=== PATIENT | female | born 1990 | race Two or more races ===

== ENCOUNTER 2025-10-08 16:25 | Emergency (ER) | payer OTHER ==
[~2025-10-08] VITALS: Ht 167.6 cm; Wt 114.3 kg
--- NOTE | 2025-10-08 16:53 | ED.PDOC ---
GI ASSESSMENT HPI Comments HPI: Mike 35 y.o female presents to the ED for a cheif complaint of epigastric and RUQ pain x 2 days ago. Patient reports pain is constant and worsens with food intake. Patient also reports 2 episodes of diarrhea that were yellow in coloration yesterday but states since has had no BM today. She denies any vomiting, fever, chills, rectal bleeding. She was treated for H.pylori 6 months ago. Past medical history: H.pylori Past surgical history: denies Allergies: NKDA MIKE GARY: EPIG/RUQ PAIN X1DAY. N/D YELLOW. WORSE WITH FOOD. HPI: Poor Historian. Past Medical History: Past Surgical History: REVIEW OF SYSTEMS: CONSTITUTIONAL: Denies acute: fever, diaphoresis, chills, generalized weakness. HEAD: Denies acute: headache, photophobia Eyes: Denies acute: Double vision, vision loss, eye pain, eye discharge. EARS: Denies acute: tinnitus, hearing loss, ear discharge, ear pain, THROAT: Denies acute: sore throat, swelling, difficulty swallowing , pain with swallowing, change in voice. NECK: Denies acute: neck pain, neck swelling, stiff neck. HEART: Denies acute : chest pain, palpitations, LUNGS: Denies acute: SOB, wheezing, cough, hemoptysis ABDOMEN: Denies acute: melena , hematemesis, hematochezia SKIN: Denies acute: rash, redness, lesions, itchiness. EXTREMITIES: Denies acute: calf pain, numbness, tingling, weakness, denies pain in extremity. Denies acute: Low back pain. Neuro: Denies acute: focal neurological deficit, motor or sensory focal neurological deficit, tremors, seizure like activity, confusion, dizziness, change in mental status, loss of bowel or bladder function, cauda equina like symptoms. : Denies acute: dysuria, hematuria, flank pain, increase in urinary frequency. PSYCH: Denies acute: hallucination, suicidal ideation, homicidal ideation. FEMALE: Denies acute: abnormal vaginal bleeding, foul odor, unusual discharge. PHYSICAL EXAM: General: ----mild to moderate----acute distress, awake and alert. Head: normocephalic, atraumatic. No raccoon's eyes, no rendon sign. Neck: supple, trachea is midline, no swelling. Throat: Normal phonation. Eyes:, no erythema, no purulent discharge, no proptosis, no icterus. Heart: regular rate, regular rhythm, no significant murmur appreciated. Lungs: no apparent respiratory distress, Able to speak in full sentences. No wheezing, no rhonchi, no crackles. No stridors Clear to auscultation bilaterally. Abdomen: Epigastric and right upper quadrant tender to palpation, non distended, soft, no guarding, no rebound, + bowel sounds. Obese Neuro: Awake, Alert, oriented to name, self, situation, follows commands GCS=15. Speech is normal. Skin: no petechia, no purpura, no cyanosis, non-pale, not jaundice. Lower extremities: --no - Pitting edema no deformity, no focal swelling, no calf TTP. Makes eye contact. moves all four extremities. Face: no apparent facial droop. Ambulating in the ED independently. ED COURSE: DISCLAIMER: This medical document was created using an electronic medical record system with voice recognition software and computerized dictation system. Although this document has been carefully reviewed, there might still be some phonetic and typographical errors. Occasional wrong-word or "sound-alike" substitutions may have occurred due to the inherent limitations of voice recognition software. These areas are purely typographical due to imperfections of the software programs and do not reflect any compromise in the patient's medical care. Please read the chart carefully and recognize, using context, where these substitutions have occurred. Chief Complaint: Abdominal Pain Time Seen by MD: 16:47 Reviewed Notes: Medications, Allergies Allergies: Coded Allergies: NO KNOWN ALLERGIES (Unverified , 10/08/25) Information Source: Patient Mode of Arrival: Ambulatory Timing: Days Duration: Since onset Quality: Sharp Was a procedure done? Was a procedure done?: No GI differential Dx Differential Diagnosis: Cholangitis, Cholecystitis, Gastritis/PUD, Gastroenteritis X-Ray, Labs, Meds, VS Vital Signs Date Time Temp Pulse Resp B/P (MAP) Pulse Ox O2 Delivery O2 Flow Rate FiO2 10/08/25 19:30 97.6 78 18 143/75 (97) 99 97.6 10/08/25 16:29 99.7 77 13 141/79 98 99.7 Lab Test 10/08/25 17:05 10/08/25 16:12 Range/Units Urine Color Light-yellow Yellow Urine Clarity Clear Clear Urine pH 7.0 5.0-9.0 Urine Specific [place] 1.011 1.001-1.035 Urine Protein Negative Negative Urine Ketones Negative Negative Urine Blood 3+ H Negative /uL Urine Nitrite Negative Negative Urine Bilirubin Negative Negative Urine Urobilinogen Normal Negative mg/dL Urine Leukocyte Esterase 1+ Negative /uL Urine RBC 13 0 - 4 /hpf Urine Microscopic WBC 22 H 0-5 /HPF Urine Squamous Epithelial Cells Few <5 /hpf Urine Bacteria Few H None Seen /hpf Urine Glucose Normal Normal mg/dL White Blood Count 8.7 4.4-10.8 10^3/uL Red Blood Count 4.85 4.0-5.20 10^6/uL Hemoglobin 13.9 12.2-16.2 g/dL Hematocrit 41.0 36.0-46.0 % Mean Corpuscular Volume 84.5 80.0-100.0 fL Mean Corpuscular Hemoglobin 28.6 28.0-32.0 pg Mean Corpuscular Hemoglobin Concent 33.8 32.0-36.0 g/dL Red Cell Distribution Width 14.6 H 11.8-14.3 % Platelet Count 326 140-450 10^3/uL Mean Platelet Volume 7.0 6.9-10.8 fL Neutrophils (%) (Auto) 72.2 37.0-80.0 % Lymphocytes (%) (Auto) 19.5 10.0-50.0 % Monocytes (%) (Auto) 5.2 0.0-12.0 % Eosinophils (%) (Auto) 2.6 0.0-7.0 % Basophils (%) (Auto) 0.5 0.0-2.0 % Neutrophils # (Auto) 6.3 1.6-8.6 10 ^3/uL Lymphocytes # (Auto) 1.7 0.4-5.4 10 ^3/uL Monocytes # (Auto) 0.5 0-1.3 10 ^3/uL Eosinophils # (Auto) 0.2 0-0.8 10 ^3/uL Basophils # (Auto) 0 0-0.2 10 ^3/uL Nucleated Red Blood Cells 0.1 % Sodium Level 142 136-145 mmol/L Potassium Level 3.7 3.5-5.1 mmol/L Chloride Level 105 98-107 mmol/L Carbon Dioxide Level 26 20-31 mmol/L Anion Gap 11 5-15 Blood Urea Nitrogen 7 L 9-23 mg/dL Creatinine 0.61 0.550-1.02 mg/dL Glomerular Filtration Rate Calc 119 >90 mL/min BUN/Creatinine Ratio 11.5 10.0-20.0 Serum Glucose 89 74-106 mg/dL Lactic Acid Level 1.1 0.4-2.0 mmol/L Calcium Level 9.3 8.7-10.4 mg/dL Total Bilirubin 0.4 0.2-1.0 mg/dL Aspartate Amino Transferase (AST) 14 13-40 U/L Alanine Aminotransferase (ALT) 16 7-40 U/L Alkaline Phosphatase 80 46-116 U/L Total Protein 7.7 5.7-8.2 g/dL Albumin 4.6 3.2-4.8 g/dL Lipase 30 12-53 U/L Current Medications Medications (Trade) Dose Ordered Sig/Derek Route Start Time Stop Time Status Last Admin Sucralfate (Carafate Tab) 1 gm ONCE ONCE PO 10/08/25 18:45 10/08/25 18:46 DC 10/08/25 19:46 Pantoprazole Sodium (Protonix Tablet) 40 mg ONCE ONCE PO 10/08/25 18:45 10/08/25 18:46 DC 10/08/25 19:46 Lidocaine HCl (Xylocaine 2% Viscous) 10 ml ONCE ONCE PO 10/08/25 18:45 10/08/25 18:46 ID 10/08/25 19:46 [place] [address] Ph: [phone] DIAGNOSTIC IMAGING Diagnostic Imaging Report : [id number] Signed PATIENT: GARY MCKEON ACCT: [id number] UNIT: [id number] : 1990 LOC: ER ROOM / BED: / AGE / SEX: 35 / F ADM STATUS: REG ER SERVICE [id number] ORDERING PHYSICIAN: KIRSTIN MARTINEZ DO PROCEDURE(s): ABDL - ABDOMEN LIMITED REASON: RUQ N/V ORDER NUMBER(s): [id number], ACCESSION NUMBER(s): [id number] INDICATION: RUQ N/V TECHNIQUE: Multiple real-time sonographic images were obtained of the right upper quadrant. COMPARISON: None FINDINGS: The liver is enlarged measuring 19.8 cm. The liver is increased in echogenicity. without focal mass lesions. There is no intrahepatic or extrahepatic ductal dilatation. The common duct measures 2.9 mm. The gallbladder is without evidence of stone or sludge. The gallbladder wall measures 1.4 mm and is within normal limits. The right kidney measures 11.5 cm. The right kidney is normal in contour, size, and shape. The echogenicity is normal. There is no hydronephrosis. The pancreas is not well visualized due to overlying bowel gas. IMPRESSION: 1. No sonographic evidence of gallstones or acute cholecystitis. 2. Hepatomegaly and hepatic steatosis. ATED BY: ALTHEA PATTON MD DICTATED DATE/TIME: 10/08/251730 SIGNED BY: ALTHEA PATTON MD SIGNED DATE/TIME: 10/08/251730 CC: Time of 1ST Reevaluation: 16:50 Reevaluation 1ST: Unchanged Patient Education/Counseling: Diagnosis, Treatment Family Education/Counseling: No Family Present Departure 1 Departure Time of Disposition: 18:31 Impression: Primary Impression: Right upper quadrant pain Additional Impression: UTI (urinary tract infection) Disposition: 01 HOME / SELF CARE / HOMELESS Condition: Stable Additional Instructions: Additional instructions: Please read all instructions provided in this packet carefully. You MUST follow-up with your primary care/family doctor in 1 to 2 days. If you are unable to see your primary care/family doctor, please return to our emergency room for re-assessment and re-evaluation in 1 to 2 days. Return to the emergency room here in our facility or to the nearest ER [facility] if your symptoms change or worsen. CONSULTATIONS: you MUST Follow-up for consultation as soon as possible with: --gastroenterology in 1-2 days. Please call for appointment. You MUST call the consultants office yourself to make an appointment. You may need to arrange that through your insurance and/or your primary/family doctor. If you are unable to see the remediation bioanalytics consultant in 1 to 2 days, you must return to our emergency room (or any other ER of your choice) for re-assessment and re- evaluation. Adequate fluid hydration. Although you have been discharged from the Emergency Department, this does not mean that you have a "clean bill of health". No definitive diagnosis for your symptoms has been made today. It is possible that you are in the process of developing a serious illness. This is why you must return to the ED without fail if any new or worsening symptoms develop. Avoid fatty greasy spicy food. Avoid caffeinated products. Avoid NSAIDs. Below is a copy of your radiological report for follow up: [address] [address] Ph: [phone] DIAGNOSTIC IMAGING Diagnostic Imaging Report : [id number] Signed PATIENT: GARY MCKEON ACCT: [id number] UNIT: [id number] : 1990 LOC: ER ROOM / BED: / AGE / SEX: 35 / F ADM STATUS: REG ER SERVICE [id number] ORDERING PHYSICIAN: KIRSTIN MARTINEZ DO PROCEDURE(s): ABDL - ABDOMEN LIMITED REASON: RUQ N/V ORDER NUMBER(s): [id number], ACCESSION NUMBER(s): [id number] INDICATION: RUQ N/V TECHNIQUE: Multiple real-time sonographic images were obtained of the right upper quadrant. COMPARISON: None FINDINGS: The liver is enlarged measuring 19.8 cm. The liver is increased in echogenicity. without focal mass lesions. There is no intrahepatic or extrahepatic ductal dilatation. The common duct measures 2.9 mm. The gallbladder is without evidence of stone or sludge. The gallbladder wall measures 1.4 mm and is within normal limits. The right kidney measures 11.5 cm. The right kidney is normal in contour, size, and shape. The echogenicity is normal. There is no hydronephrosis. The pancreas is not well visualized due to overlying bowel gas. IMPRESSION: 1. No sonographic evidence of gallstones or acute cholecystitis. 2. Hepatomegaly and hepatic steatosis. ATED BY: ALTHEA PATTON MD DICTATED DATE/TIME: 10/08/251730 SIGNED BY: ALTHEA PATTON MD SIGNED DATE/TIME: 12/20/25 1731 CC: Discharged With: Self Critical Care Note Critical Care Time?: No I personally scribed for KIRSTIN MARTINEZ DO ([email or web address]) on 10/08/25 at 16:53. Electronically submitted by Jackelyn Navarrete ([facility]). I personally scribed for KIRSTIN MARTINEZ DO ([email or web address]) on 10/08/25 at 22:25. Electronically submitted by Jackelyn Navarrete ([facility]). KIRSTIN MARTINEZ DO Oct 08, 2025 16:53
[2025-10-08 17:18] LABS: Hematocrit 41.0 % (36.0-46.0); Hemoglobin 13.9 g/dL (12.2-16.2); Mean Corpuscular Hemoglobin 28.6 pg (28.0-32.0); Mean Corpuscular Volume 84.5 fL (80.0-100.0); Nucleated Red Blood Cells % 0.1 %
[2025-10-08 17:23] LABS: Urine Protein, UAD Negative (Negative)
[2025-10-08 17:32] LABS: Alanine Aminotransferase 16 U/L (7-40); Albumin 4.6 g/dL (3.2-4.8); Alkaline Phosphatase 80 U/L (46-116); Anion Gap 11 (5-15); BUN/Creatinine Ratio 11.5 (10.0-20.0); Calcium 9.3 mg/dL (8.7-10.4); Carbon Dioxide 26 mmol/L (20-31); Chloride 105 mmol/L (98-107); Glucose 89 mg/dL (74-106); Lipase 30 U/L (12-53); Potassium 3.7 mmol/L (3.5-5.1); Sodium 142 mmol/L (136-145); Total Protein 7.7 g/dL (5.7-8.2)
[2025-10-08 17:33] LABS: Bilirubin, Total 0.4 mg/dL (0.2-1.0)
--- NOTE | 2025-10-08 17:33 | DVH ---
INDICATION: RUQ N/V TECHNIQUE: Multiple real-time sonographic images were obtained of the right upper quadrant. COMPARISON: None FINDINGS: The liver is enlarged measuring 19.8 cm. The liver is increased in echogenicity. without focal mass lesions. There is no intrahepatic or extrahepatic ductal dilatation. The common duct measures 2.9 mm. The gallbladder is without evidence of stone or sludge. The gallbladder wall measures 1.4 mm and is within normal limits. The right kidney measures 11.5 cm. The right kidney is normal in contour, size, and shape. The echogenicity is normal. There is no hydronephrosis. The pancreas is not well visualized due to overlying bowel gas. IMPRESSION: 1. No sonographic evidence of gallstones or acute cholecystitis. 2. Hepatomegaly and hepatic steatosis.
[2025-10-08 17:34] LABS: Blood Urea Nitrogen 7 mg/dL (9-23)
[2025-10-08 19:30] VITALS: BP 143/75; PULSE 78; RESP 18; TEMP 97.6; O2SAT 99
[2025-10-08] MEDS: PANTOPRAZOLE 40 MG TAB PO ONE (19:46)
[2025-10-08] MEDS: LIDOCAINE VISCOUS 2% 15ML UD PO ONE (19:46)
[2025-10-08] MEDS: SUCRALFATE 1 GM TAB PO ONE (19:46)
[2025-10-08] MEDS ORDERED: ZOFR4T PO (22:33)
[2025-10-08] MEDS ORDERED: NITR-87 PO (22:33)
== END 2025-10-08 20:04 | disposition home or self-care (01) ==
LOC: ER 16:25
DX: N39.0 Urinary tract infection, site not specified (principal); R10.11 Right upper quadrant pain; Z79.899 Other long term (current) drug therapy
CPT/HCPCS: 36415; 76705; 80053; 81001; 83605; 83690; 85025